=== PATIENT | female | born 1975 | race Caucasian/White ===

== ENCOUNTER 2017-06-19 16:30 | Emergency (ER) | payer BC ==
[2017-06-19] MEDS ORDERED: Lidocaine 1% 20 ML MDV INJECT ONE (16:33)
--- NOTE | 2017-06-19 16:44 | EDM.PDOC ---
ED HPI GENERAL MEDICAL PROBLEM - General Chief Complaint: Laceration Stated Complaint: laceration Time Seen by Provider: 06/19/17 16:35 Source of Information: Reports: Patient History Limitations: Reports: No Limitations - History of Present Illness INITIAL COMMENTS - FREE TEXT/NARRATIVE: Was cutting up potatoes and the knife slipped and she cut the proximal left fifth digit. It is 1 cm in length and gapping. minimal bleeding noted. No other complaints or injuries. Onset: Today Location: Reports: Other (left fifth digit) - Related Data Allergies Allergy/AdvReac Type Severity Reaction Status Date / Time ciprofloxacin [From Cipro] AdvReac Itching Verified 06/19/17 16:30 Social & Family History - Tobacco Use Smoking Status *Q: Never Smoker ED ROS GENERAL - Review of Systems Review Of Systems: See Below Skin: Reports: Wound (left fifth digit.) ED EXAM, SKIN/RASH Exam: See Below Exam Limited By: No Limitations General Appearance: Alert, WD/WN, No Apparent Distress Skin: Wound/Incision (1 cm laceration to the proximal left fifth digit.) ED SKIN PROCEDURES - Laceration/Wound Repair Left Proximal Finger Lac/Wound length In cm: 1 Appearance: Linear, Clean Distal NVT: Neuro & Vascular Intact Anesthetic Type: Local Local Anesthesia - Lidocaine (Xylocaine): 1% Plain Local Anesthetic Volume: 1cc Skin Prep: Saline Suture Size: other (5-0) # of Sutures: 2 Suture Type: Nylon, Interrupted, Simple Tetanus Status Addressed: Yes Complications: No Course - Orders/Labs/Meds Orders: Active Orders 24 hr Category Date Time Status Lidocaine 1% [Xylocaine 1%] Med 06/19/17 16:33 Once 20 ml INJECT ONETIME ONE Departure - Departure Time of Disposition: 16:52 Disposition: Home, Self-Care 01 Condition: Good Clinical Impression: Laceration - Discharge Information Additional Instructions: keep clean and dry. May shower and dry but do not soak in water. sutures out in 10 days recheck with any signs of infection. - Problem List & Annotations (1) Laceration SNOMED Code(s): 418278755 Code(s): [id number] - Status: Acute Priority: High Current Visit: Yes - Problem List Review Problem List Initiated/Reviewed/Updated: Yes - My Orders Last 24 Hours: My Active Orders 06/19/17 16:33 Lidocaine 1% [Xylocaine 1%] 20 ml INJECT ONETIME ONE - Assessment/Plan Last 24 Hours: My Active Orders 06/19/17 16:33 Lidocaine 1% [Xylocaine 1%] 20 ml INJECT ONETIME ONE Plan: Will come back to the clinic on Wednesday to determine if she needs tetanus updated.
== END 2017-06-19 17:01 | disposition home or self-care (01) ==
LOC: CC.ED 16:30
DX: S61.217A Laceration without foreign body of left little finger without damage to nail, initial encounter (principal); W26.0XXA Contact with knife, initial encounter; Z88.1 Allergy status to other antibiotic agents
CPT/HCPCS: 12001; 99282

== ENCOUNTER 2021-09-21 05:00 | Emergency (ER) | payer BC, OTHER ==
[2021-09-21] MEDS ORDERED: Benzonatate 100 MG Cap PO ONE ×3 (06:34→06:39)
[2021-09-21] MEDS ORDERED: Amoxicillin/Clavulanate K 875-125 MG Tab PO ONE (06:40)
[2021-09-21] MEDS ORDERED: Amoxicillin/Clavulanate K 875-125 MG Tab PO SCH ×3 (08:00)
[2021-09-21] MEDS ORDERED: Benzonatate 100 MG Cap PO SCH (08:00)
== END 2021-09-21 06:55 | disposition home or self-care (01) ==
LOC: CC.ED 05:00
DX: J18.9 Pneumonia, unspecified organism (principal); J01.10 Acute frontal sinusitis, unspecified; E78.00 Pure hypercholesterolemia, unspecified; E66.9 Obesity, unspecified; Z68.41 Body mass index [BMI] 40.0-44.9, adult; Z88.0 Allergy status to penicillin; Z79.899 Other long term (current) drug therapy
CPT/HCPCS: 71046; 99284; 99284-25; A9270-GY

== ENCOUNTER 2022-05-15 16:25 | Emergency (ER) | payer BC ==
[2022-05-15] MEDS ORDERED: Sodium Chloride 0.9% 10 ML Syringe FLUSH PRN (16:41)
[2022-05-15] MEDS ORDERED: Alum Hydrox/Mag Hydrox/Simeth 30 ML, Lidocaine 2% 15 ML PO ONE ×2 (17:13)
[2022-05-15 17:22] LABS: PTT,PARTIAL THROMBOPLSTIN TIME 27.6 SEC (23.2-32.3)
[2022-05-15 17:33] LABS: CORONAVIRUS COVID-19 NAA NEGATIVE (NEGATIVE)
[2022-05-15 17:34] LABS: RESPIRATORY SYNCYTIAL VIR NAA NEGATIVE (NEGATIVE)
[2022-05-15] MEDS ORDERED: Iopamidol 755 Mg/ML 100 ML Bottle IVPUSH ONE (17:52)
[2022-05-15] MEDS ORDERED: Sodium Chloride 0.9% 1,000 ML IV ONE (19:04)
== END 2022-05-15 20:08 | disposition home or self-care (01) ==
LOC: CC.ED 16:25
DX: R07.2 Precordial pain (principal); E78.00 Pure hypercholesterolemia, unspecified; E66.9 Obesity, unspecified; Z68.41 Body mass index [BMI] 40.0-44.9, adult; Z88.1 Allergy status to other antibiotic agents; Z79.82 Long term (current) use of aspirin; Z79.899 Other long term (current) drug therapy; Z20.822 Contact with and (suspected) exposure to COVID-19
CPT/HCPCS: 0241U; 36415; 71046; 71275; 80053; 83735; 84484; 85025; 85379; 85610; 85730; 96360; 99285-25; A9270-GY; J7030; Q9967